=== PATIENT | male | born 1960 | race Caucasian/White ===

== ENCOUNTER 2016-10-08 09:33 | Emergency (ER) | payer OTHER ==
[~2016-10-08] VITALS: Ht 182.2 cm; Wt 63.5 kg
[~2016-10-08 09:33] MED LIST: BACTRIM DS 8001 TAB PO; FOLIC ACID1 M1 PO; GABAPENTIN300 MG PO; HYDROXYZINE HCL10 MG PO; HYDROXYZINE HCL50 MG PO; HYDROXYZINE50 MG PO; K-DUR 20MEQ TA20 MEQ PO; KEFLEX500 MG PO; LOTRISONE CREAM15 GM TOP; MAGNESIUM OXID400 MG PO; MULTIVITAMIN1 TAB PO; NAPROXEN500 MG PO; NORCO 325 MG-51 TAB PO; NYSTATIN1 POW EXT; PREDNICOT20 MG PO; PREDNISONE10 MG PO; ROBITUSSIN W/CO10 ML PO; TRIAMCINOLON TOP; TRIAMCINOLONE 0.1 GM TOP; VITAMIN B-12100 MCG PO; VITAMIN B121000 MC2 PO; ZITHROMAX Z-PA250 M1 PO
[2016-10-08] MEDS ORDERED: GABAPENTIN300 M2 PO (10:38)
--- NOTE | 2016-10-08 11:15 | ED INFLUENZA/URI COMPLAINT ---
History of Present Illness General Chief Complaint: General Adult Stated Complaint: " I HAVE A COLD AND FEVER 2 MONTHS" Source: patient, old records Exam Limitations: no limitations Vital Signs & Intake/Output Vital Signs & Intake/Output Vital Signs Date Time Temp Pulse Resp B/P Pulse O2 O2 Flow FiO2 Ox Delivery Rate 10/08 1225 98.5 79 20 134/97 96 Room Air 10/08 1131 95 10/08 0951 98.4 91 20 161/104 97 Room Air Allergies Coded Allergies: levetiracetam (Severe, UNKNOWN 10/08/16) Penicillins (Intermediate, ANGIODEMA 10/08/16) clindamycin (Intermediate, RASH 10/08/16) doxycycline (Intermediate, ANGIODEMA 10/08/16) phenytoin (From Dilantin) (Intermediate, FEVER 10/08/16) aloe (UNKNOWN 10/08/16) cephalexin (HIVES 10/08/16) shellfish derived (SHRIMP 10/08/16) tetracycline (ANGIODEMA 10/08/16) Reconcile Medications Azithromycin (Zithromax) 500 MG TABLET 1 TAB PO DAILY TICK BORNE Folic Acid 1 MG TABLET 1 TAB PO DAILY SUPPLEMENT (Reported) Gabapentin 300 MG CAPSULE 2 CAP PO BID SEIZURES (Reported) Triage Note: TRIAGE: PT TO ER C/C HEAD COLD AND FEVER X 2.5 MONTHS. STATES "I WAS SUPPOSED TO GET A VITAMIN SHOT BUT I ENDED UP GETTING THE FLU SHOT". HAS HAD S/S WAXING AND WANING SINCE. Triage Nurses Notes Reviewed? yes Onset: Gradual Duration: X 2.5 MONTHS Timing: recent history Severity: mild Severity Numbers: 5 Prior Episodes/Possible Cause: no prior episodes No Modifying Factors: none Associated Symptoms: DENIES HPI: 55-year-old male with history of seizure disorder presents emergency room complaining of a 2-1/2 month history of intermittent cold-like symptoms, nonproductive cough congestion and rhinorrhea and subjective chills fevers. He has not sought care for the symptoms until today. No shortness of breath no sputum production or hemoptysis chest pain abdominal pain nausea vomiting or diarrhea. he is not taken anything for his symptoms. He is an active smoker He denies pain Past History Travel History Traveled to [place] past 21 day No Medical History Any Pertinent Medical History? 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 No Review of Systems Review of Systems Constitutional: Reports: see HPI. All Other Systems: Reviewed and Negative Comments Review of systems: See HPI, All other systems negative. Constitutional, fever, no malaise no weight loss HEENT: No visual changes no sore throat congestion, no ear pain Cardiovascular: No chest pain , no palpitation Skin, no rashes, no change in skin Respiratory: No dyspnea cough no sputum no hemoptysis GI: No nausea no vomiting, no diarrhea, no bloating/constipation : No dysuria Muscle skeletal: No joint pain, no joint swelling, no back pain Neurologic: No numbness no confusion, no headache Psych: No stress Heme/endocrine: No bruising no bleeding Immunology: No lymphadenopathy Physical Exam Physical Exam General Appearance: well developed/nourished, alert, awake Ears, Nose, Throat: normal ENT inspection, moist mucous membrane Comments: Well-developed well-nourished person in no acute distress HEENT: Normal EENT exam; PERRL, EOMI, no nystagmus. HEAD is atraumatic. moist mucous membranes. Neck: Supple, no lymphadenopathy, normal range of motion Back: Nontender, no CVA tenderness. Full range of motion Cardiovascular: Regular rate and rhythms no murmurs rubs or gallops, normal JVP Respiratory: Chest nontender.There were no bony deformities, no asymmetry. No respiratory distress. Patient speaking in full complete sentences. Breath sounds clear to auscultation bilaterally: NO W/R/R Abdomen: Soft, nontender nondistended, no appreciable organomegaly. Normal bowel sounds. No rebound/guarding, Extremity: No edema, full range of motion of extremities Neuro: Alert oriented x3, motor sensory normal, There were no obvious focal neurologic abnormalities. Skin: No appreciable rash on exposed skin, skin is warm and dry. Psych: Mood and affect is normal, memory and judgment is normal. Core Measures Severe Sepsis Present: No Septic Shock Present: No Progress Differential Diagnosis: influenza, neutropenia, otitis, pneumonia, pharyngitis, sinusitis, MALIGNANCY, TICKBORNE ILLNESS Plan of Care: Orders Procedure Date/time Status Add-on Test (ER Only) 10/08 1209 Active HEPATIC FUNCTION PANEL 10/08 1130 Complete CBC WITHOUT DIFFERENTIAL 10/08 1123 Complete BASIC METABOLIC PANEL 10/08 1123 Complete Laboratory Tests 10/08/16 1130: Anion Gap 10, Estimated GFR > 60, BUN/Creatinine Ratio 11.4, Glucose 103 H, Calcium 10.1, Total Bilirubin 1.3, Direct Bilirubin 0.6 H, AST 43, ALT 29, Alkaline Phosphatase 60, Total Protein 7.9, Albumin 4.4, CBC w Diff NO MAN DIFF REQ, RBC 3.94 L, MCV 103.5 H, MCH 34.7 H, RDW 14.9 H, MPV 8.7, Gran % 65.6, Lymphocytes % 26.0, Monocytes % 7.3, Eosinophils % 0.8, Basophils % 0.3, Absolute Granulocytes 2.8, Absolute Lymphocytes 1.1 L, Absolute Monocytes 0.3, Absolute Eosinophils 0, Absolute Basophils 0, PUBS MCHC 33.5 Labs ordered old records reviewed chest x-ray ordered Discussed the patient at length all his lab results including his decreased white blood cell count PLT COUNT, which is new compared to previous. Discussed with patient possibility of a tickborne illness vs other pathology that could be contributing to these lab findings and that r he needs close follow-up with his primary care physician as he will require repeat blood test later this week. Prescription for Zithromax was provided given allergies to penicillin, tetracycline doxycycline take panel was sent which is pending a feel comfortable with this plan (MANDA BAIRD,JUANJO) Diagnostic Imaging: Viewed by Me: Radiology Read. Discussed w/RAD: Radiology Read. Radiology Impression: PATIENT: KRISTY AZUL PRESENT AGE: 55 PATIENT ACCOUNT NO: [id number] : 62 LOCATION: [facility] ORDERING PHYSICIAN: JUANJO BAIRD SERVICE DATE: 10/08/16112 EXAM TYPE: RAD - XRY-CHEST XRAY, PA AND LATERAL EXAMINATION: XR CHEST CLINICAL INFORMATION: Cough and fever. COMPARISON: Multiple priors, most recently 09/22/2015 TECHNIQUE : 2 views of the chest were obtained. FINDINGS: The lungs are hyperexpanded with flattening of the diaphragm. No dense consolidation, edema, or pleural effusion. No pneumothorax. The cardiomediastinal silhouette is within normal limits. Degenerative changes of the spine. Possible nodular density overlying the left mid to lower lung, in the region of the anterior left sixth rib is noted. This is similar in appearance to the study from 2013 and could be associated with a nipple shadow. IMPRESSION: Hyperexpanded lungs with no acute pulmonary findings. DICTATED BY: KRISTAL FARRAR MD DATE/TIME DICTATED:10/08/161205 CLERICAL OFFICE WORKER:GERMANIA DATE/TIME TRANSCRIBED:10/08/161205 CONFIDENTIAL, DO NOT COPY WITHOUT APPROPRIATE AUTHORIZATION. <Electronically signed in Other Vendor System> SIGNED BY: KRISTLA FARRAR MD 10/08/16 1212 Initial ED EKG: none Departure Departure Time of Disposition: 1309 Disposition: HOME OR SELF CARE Condition: Stable Clinical Impression Primary Impression: Leukopenia Secondary Impressions: Thrombocytopenia Referrals: EDVIN HERNANDEZ MD (PCP/Family) Additional Instructions: AZITHROMYCIN DIRECTED, FOLLOW UP WITH YOUR PMD THIS WEEK YOU WILL NEED REPEAT BLOOD WORK. IF THE TICK PANEL COMES BACK POSITIVE YOU WILL RECEIVE A PHONE CALL. RETURN AT ANYTIME SOONER WITH ANY CONCERNS. Departure Forms: Customer Survey General Discharge Information Prescriptions: Current Visit Scripts Azithromycin (Zithromax) 1 TAB PO DAILY #10 TAB
[2016-10-08 11:36] LABS: ABSOLUTE BASOPHIL COUNT 0 /CUMM (0.0-0.2); ABSOLUTE EOSINOPHIL COUNT 0 /CUMM (0.0-0.7); ABSOLUTE GRANULOCYTE CT 2.8 /CUMM (1.4-6.5); ABSOLUTE LYMPH COUNT 1.1 /CUMM (1.2-3.4); ABSOLUTE MONOCYTE COUNT 0.3 /CUMM (0.10-0.60); BASOPHIL % 0.3 % (0.0-2.0); EOSINOPHIL % 0.8 % (0-5); GRANULOCYTE % 65.6 % (42.2-75.2); HEMATOCRIT 40.8 % (42-52); MEAN CORPUSCULAR HGB 34.7 PG (27.0-31.0); MEAN CORPUSCULAR HGB CONC 33.5 G/DL (33.0-37.0); MEAN CORPUSCULAR VOLUME 103.5 FL (80.0-94.0); MEAN PLATELET VOLUME 8.7 FL (7.4-10.4); RBC DISTRIBUTION WIDTH 14.9 % (11.5-14.5); RED BLOOD CELL CT 3.94 /CUMM (4.70-6.10); WHITE BLOOD CELL COUNT 4.2 /CUMM (4.8-10.8)
[2016-10-08 12:01] LABS: PLATELET COUNT 66 /CUMM (130-400)
--- NOTE | 2016-10-08 12:12 | RADIOLOGY REPORT ---
EXAMINATION: XR CHEST CLINICAL INFORMATION: Cough and fever. COMPARISON: Multiple priors, most recently 09/22/2015 TECHNIQUE: 2 views of the chest were obtained. FINDINGS: The lungs are hyperexpanded with flattening of the diaphragm. No dense consolidation, edema, or pleural effusion. No pneumothorax. The cardiomediastinal silhouette is within normal limits. Degenerative changes of the spine. Possible nodular density overlying the left mid to lower lung, in the region of the anterior left sixth rib is noted. This is similar in appearance to the study from 2012 and could be associated with a nipple shadow. IMPRESSION: Hyperexpanded lungs with no acute pulmonary findings.
[2016-10-08 12:25] VITALS: BP 134/97
[2016-10-08] MEDS ORDERED: ZITHROMAX500 M2 PO (12:43)
== END 2016-10-08 13:15 ==
LOC: ERH 09:33
PROVIDERS: Physician Assistant Medical
DX: D72.819 Decreased white blood cell count, unspecified (principal); D69.6 Thrombocytopenia, unspecified
CPT/HCPCS: 86317; 87798

== ENCOUNTER 2016-11-25 19:13 | Emergency (ER) | payer OTHER ==
[~2016-11-25 19:13] MED LIST changes: +GABAPENTIN300 M2 PO; +ZITHROMAX500 M2 PO
--- NOTE | 2016-11-25 19:34 | ED PSYCHIATRIC COMPLAINT ---
See Addendum History of Present Illness General Chief Complaint: ETOH/Drug Related Complaint Stated Complaint: JAX AFTER GF CALLED PD BECAUSE HE WAS DRUNK Source: patient Exam Limitations: no limitations Vital Signs & Intake/Output Vital Signs & Intake/Output Vital Signs Date Time Temp Pulse Resp B/P B/P Pulse O2 O2 Flow FiO2 Mean Ox Delivery Rate 11/26 1412 97.9 86 16 144/82 05/ 1412 97.9 86 16 144/82 96 Room Air 11/26 1215 97.5 88 18 132/80 05/15 1200 97.5 88 18 132/80 97 Room Air 11/26 1015 98.0 92 18 130/78 05/15 1008 98.0 92 18 130/78 97 Room Air / 0815 97.0 74 18 130/82 05/15 0807 97.0 74 18 130/82 98 Room Air 11/26 0623 98.3 68 18 134/81 05/ 0615 98.3 68 18 134/81 94 Room Air 11/26 0432 98.6 81 18 129/80 05/15 0423 98.6 81 18 129/80 97 Room Air 11/26 0111 64 18 98 Room Air 11/25 2149 97.8 59 20 121/73 94 Room Air 11/25 2017 96.0 57 18 124/79 95 Room Air 11/25 195 96.0 61 18 143/84 97 Room Air Allergies Coded Allergies: levetiracetam (Severe, UNKNOWN 10/08/16) Penicillins (Intermediate, ANGIODEMA 10/08/16) clindamycin (Intermediate, RASH 10/08/16) doxycycline (Intermediate, ANGIODEMA 10/08/16) phenytoin (From Dilantin) (Intermediate, FEVER 10/08/16) aloe (UNKNOWN 10/08/16) cephalexin (HIVES 10/08/16) shellfish derived (SHRIMP 10/08/16) tetracycline (ANGIODEMA 10/08/16) Triage Note: JAX FROM HOME AFTER GIRLFRIEND GOT UPSET THAT HE WAS DRUNK WHILE THEY WERE WATCHING SPORTS. SHE CALLED 911 AND PD ENCOURAGED PT TO COME TO HOSPITAL. PT ARRIVES CALM AND COOPERATIVE AT THIS TIME. STATES HE DOES NOT WANT TO BE HERE AND DOES NOT WANT DETOX. BREATHALYZER 0.367 ON ARRIVAL Triage Nurses Notes Reviewed? yes Onset: Abrupt Duration: hour(s):, constant Timing: recent history HPI: 56-year-old male brought into the emergency room for further evaluation of being drunk and intoxicated at home. Apparently the police were called by neighbors or possibly a friend of his that was with him. When I spoke with the patient he denies any suicidal or homicidal ideation. Denies being in the public. He reports he was drinking alcohol at his own home. He denies wanting any alcohol detox. When I spoke with the friend Kelsie that was with him she reports that she has been making suicidal comments "that he is going to shoot himself in the head". He has also been making homicidal ideations. He is apparently going through some stressful times in relation to Court related issues. He is a heavy alcoholic but denies any other drug use. Drink heavy amount of vodka. (YESICA OLMEDO) Reconcile Medications Folic Acid 1 MG TABLET 1 TAB PO DAILY SUPPLEMENT (Reported) Gabapentin 300 MG CAPSULE 2 CAP PO BID SEIZURES (Reported) (PABLITO MCKEON DO) Past History Travel History Traveled to [place] past 21 day No Medical History Any Pertinent Medical History? 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 No (YESICA OLMEDO) Review of Systems Review of Systems Constitutional: Reports: no symptoms. EENTM: Reports: no symptoms. Respiratory: Reports: no symptoms. Cardiovascular: Reports: no symptoms. GI: Reports: no symptoms. Genitourinary: Reports: no symptoms. Musculoskeletal: Reports: no symptoms. Skin: Reports: no symptoms. Neurological/Psychological: Reports: see HPI. Hematologic/Endocrine: Reports: no symptoms. Immunologic/Allergic: Reports: no symptoms. All Other Systems: Reviewed and Negative (YESICA OLMEDO) Physical Exam Physical Exam General Appearance: well developed/nourished, mild distress, intoxicated Head: atraumatic Eyes: Bilateral: normal appearance. Ears, Nose, Throat: normal ENT inspection, hearing grossly normal Neck: normal inspection Respiratory: no respiratory distress Extremities: normal range of motion Neurological/Psychiatric: awake, agitated, alert Appearance/Memory/Insight: appropriate appearance Behavoir/Eye Contact/Speech: uncooperative Thoughts/Hallucinations: no apparent hallucination Skin: intact SAD PERSONS Done? unobtained due to conditi (YESICA OLMEDO) Progress Differential Diagnosis: dementia, drug intoxication, drug overdose, drug withdrawal, electrolyte abnormality, encephalitis, hypoglycemia, hypothyroidism, IC hem/mass/tumor, meningitis Plan of Care: Orders Procedure Date/time Status Regular Diet 11/26 B Active Continuous Observation Monitor 11/26 1101 Active Continuous Observation Monitor 11/25 2036 Active URINE DRUGS OF ABUSE 11/25 1925 Complete ED CRISIS PSYCH CONSULT 11/25 1925 Active ETHANOL 11/25 1917 Complete COMPREHENSIVE METABOLIC PANEL 11/25 1917 Complete CBC WITHOUT DIFFERENTIAL 11/25 1917 Complete Laboratory Tests 11/25/16 2012: Anion Gap 21 H, Estimated GFR > 60, BUN/Creatinine Ratio 15.7, Glucose 70, Calcium 8.8, Total Bilirubin 1.0, AST 118 H, ALT 56, Alkaline Phosphatase 75, Total Protein 7.7, Albumin 4.6, Globulin 3.1, Albumin/Globulin Ratio 1.5, CBC w Diff MAN DIFF ORDERED, RBC 4.09 L, MCV 104.2 H, MCH 35.3 H, RDW 15.3 H, MPV 10.3, Gran % 33.0 L, Lymphocytes % 59.8 H, Monocytes % 5.4, Eosinophils % 1.2, Basophils % 0.6, Absolute Granulocytes 1.2 L, Segmented Neutrophils 35 L, Band Neutrophils 4, Absolute Lymphocytes 2.1, Lymphocytes 52 H, Monocytes 6, Absolute Monocytes 0.2, Eosinophils 3, Absolute Eosinophils 0, Absolute Basophils 0, Platelet Estimate DECREASED, Basophilic Stippling 1+, Anisocytosis 1+, Macrocytic Cells 1+, PUBS MCHC 33.9, Serum Alcohol 332.0 11/25/161955: Urine Opiates Screen < 100.00, Methadone Screen < 40, Barbiturate Screen < 60, Ur Phencyclidine Scrn < 6.00, Amphetamines Screen < 100, U Benzodiazepines Scrn < 85, Urine Cocaine Screen < 50, Urine Cannabis Screen 7.90 Hand-Off Endorsed To: NELSON FRANCE MD Pending: consult (crisis), labs (YESICA OLMEDO) Hand-Off Endorsed To: DAMION PARTIDA MD Endorsed Time: 0700 Pending: consult (NELSON FRANCE MD) Departure Departure Disposition: STILL A PATIENT Condition: Stable Clinical Impression Primary Impression: Alcohol abuse Secondary Impressions: Homicidal ideation, Suicidal ideation Referrals: EDVIN HERNANDEZ MD (PCP/Family) Departure Forms: Customer Survey General Discharge Information (YESICA OLMEDO) PA/QUALITY CONTROL PROJECTIONIST Co-Sign Statement Statement: ED Attending supervision documentation- [] I saw and evaluated the patient. I have also reviewed all the pertinent lab results and diagnostic results. I agree with the findings and the plan of care as documented in the PA's/QUALITY CONTROL PROJECTIONIST's documentation. [x] I have reviewed the ED Record and agree with the PA's/QUALITY CONTROL PROJECTIONIST's documentation. [] Additions or exceptions (if any) to the PAs/QUALITY CONTROL PROJECTIONIST's note and plan are summarized below: [] (KATHI HAWLEY,NELSON Mayo) Departure Comments 11/26/16 3 PM The patient was signed out to me by Dr. France at 7 AM, at 3 PM- The patient was seen and evaluated and cleared by crisis. He has no interest in detox at this time. (PABLITO MCKEON DO)
[2016-11-25 20:26] LABS: HEMATOCRIT 42.6 % (42-52); MEAN CORPUSCULAR HGB 35.3 PG (27.0-31.0); MEAN CORPUSCULAR HGB CONC 33.9 G/DL (33.0-37.0); MEAN CORPUSCULAR VOLUME 104.2 FL (80.0-94.0); RBC DISTRIBUTION WIDTH 15.3 % (11.5-14.5); RED BLOOD CELL CT 4.09 /CUMM (4.70-6.10); WHITE BLOOD CELL COUNT 3.5 /CUMM (4.8-10.8)
[2016-11-25 20:27] LABS: ABSOLUTE BASOPHIL COUNT 0 /CUMM (0.0-0.2); ABSOLUTE EOSINOPHIL COUNT 0 /CUMM (0.0-0.7); ABSOLUTE GRANULOCYTE CT 1.2 /CUMM (1.4-6.5); ABSOLUTE LYMPH COUNT 2.1 /CUMM (1.2-3.4); ABSOLUTE MONOCYTE COUNT 0.2 /CUMM (0.10-0.60); BASOPHIL % 0.6 % (0.0-2.0); EOSINOPHIL % 1.2 % (0-5); MEAN PLATELET VOLUME 10.3 FL (7.4-10.4)
[2016-11-25 20:46] LABS: PLATELET COUNT 43 /CUMM (130-400)
--- NOTE | 2016-11-26 11:18 | ED PSYCH CRISIS CONSULTATION ---
See Addendum Crisis Consult Basic Assessment Date of Consult: 11/26/16 Responsible Person/Accompanied By: self Insurance Authorization: Insurance #1: Insurance name: SHYLA FRANCOIS Phone number: Policy number: [id number] Group number: Authorization number: ED Provider: Patient's ED Provider: YESICA OLMEDO Primary Care Physician: Patient's PCP: EDVIN HERNANDEZ MD PCP's Current Psychiatrist: none Chief Complaint: ETOH/Drug Related Complaint Patient's Quote: "I would never hurt anyone or myself." Present Illness: Pt is a 56yo male who was brought to the ED after his girlfriend called 911 because pt was making suicidal statements saying he would get a gun and shoot himself or that he would stab himself. He also made HI threats toward his girlfriend with no specific plan. Pt made these statements while he was intoxicated. His BAL was 367 at 1915 on 11/25/16. Pt presents as calm and cooperative. He declines wanting detox. He reports drinking 1 pint of hard alcohol daily since age 20. He adamantly denies SI/HI and says he does not recall making any SI/HI statements. He declines any treatment or referrals and wants to be discharged. He denies any sx of depression. "I need to get out of here sherif I have to take care of my 89yo sick Mom and I have bills to pay." Pt denies any hx of inpt psych or detox. He reports that he was in out pt tx at [facility] about 2-3 years ago. Crisis spoke with Pt's Girlfriend of 25 years Nancy Tamez . She does not live with pt but was over his house last night. She reports that he has failed 2 [facility] intakes recently due to being drunk. He has court on Saturday due to an arrest related to being drunk in public. Nancy informed that court plans to mandate him to go to rehab. She explains that the reason sh had him sent to the hospital last night was that he had been making suicidal statements all week, but last night has was making SI/HI statements as well. Case reviewed with Dr. Cerrato of psychiatry as well ad Dr. Travis Chair of Psychiatry and Maricruz Leigh director biostatistics. It was advised that Nancy come in for a meeting with pt and die cut operator and then based on the outcome of meeting, will likely be discharged. Nancy agreed to come in this afternoon. Pt in agreement with plan. Patient's Address: [address] [place] [address] Other Who Do You Live With? Patient/Self Family/Informants Interviewed: Girlfriend Allergies - Coded Allergies: levetiracetam (Severe, UNKNOWN 10/08/16) Penicillins (Intermediate, ANGIODEMA 10/08/16) clindamycin (Intermediate, RASH 10/08/16) doxycycline (Intermediate, ANGIODEMA 10/08/16) phenytoin (From Dilantin) (Intermediate, FEVER 10/08/16) aloe (UNKNOWN 10/08/16) cephalexin (HIVES 10/08/16) shellfish derived (SHRIMP 10/08/16) tetracycline (ANGIODEMA 10/08/16) Current Medications - Scheduled Medications Folic Acid 1 MG TABLET 1 TAB PO DAILY SUPPLEMENT (Reported) Entered as Reported by PEDRO PABLO ADAMS on 04/12/14 1212 Gabapentin 300 MG CAPSULE 2 CAP PO BID SEIZURES (Reported) Entered as Reported by PEDRO PABLO ADAMS on 10/08/16 1038 Laboratory Results: Laboratory Tests 11/25/16 2012: Anion Gap 21 H, Estimated GFR > 60, BUN/Creatinine Ratio 15.7, Glucose 70, Calcium 8.8, Total Bilirubin 1.0, AST 118 H, ALT 56, Alkaline Phosphatase 75, Total Protein 7.7, Albumin 4.6, Globulin 3.1, Albumin/Globulin Ratio 1.5, CBC w Diff MAN DIFF ORDERED, RBC 4.09 L, MCV 104.2 H, MCH 35.3 H, RDW 15.3 H, MPV 10.3, Gran % 33.0 L, Lymphocytes % 59.8 H, Monocytes % 5.4, Eosinophils % 1.2, Basophils % 0.6, Absolute Granulocytes 1.2 L, Segmented Neutrophils 35 L, Band Neutrophils 4, Absolute Lymphocytes 2.1, Lymphocytes 52 H, Monocytes 6, Absolute Monocytes 0.2, Eosinophils 3, Absolute Eosinophils 0, Absolute Basophils 0, Platelet Estimate DECREASED, Basophilic Stippling 1+, Anisocytosis 1+, Macrocytic Cells 1+, PUBS MCHC 33.9, Serum Alcohol 332.0 11/25/166: Urine Opiates Screen < 100.00, Methadone Screen < 40, Barbiturate Screen < 60, Ur Phencyclidine Scrn < 6.00, Amphetamines Screen < 100, U Benzodiazepines Scrn < 85, Urine Cocaine Screen < 50, Urine Cannabis Screen 7.90 Past History Past Medical History Neurological: seizure EENT: cataracts Cardiovascular: NONE Respiratory: pneumonia Gastrointestinal: NONE Hepatic: NONE Renal: NONE Musculoskeletal: FRACTURED SKULL Psychiatric: NONE Endocrine: hypoglycemia Blood Disorders: NONE Cancer(s): 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 Past Surgical History Surgical History: non-contributory Psychosocial History Strengths/Capabilities: supportive concerned girlfriend, forward thinking Physical Limitations (Interventions): none reported Psychiatric Treatment History Psych Treatment Psychiatric Treatment No Inpatient Treatment No Outpatient Treatment No Diagnosis by History: n/a Substance Use/Abuse History Drug Use/Abuse Substances Used/Abused Yes Substance Used/Abused Alcohol First Use 20yo Last Used last night How much used/taken 1 pint How often daily For how long since age 20 Route of use po Substance Abuse Treatment Substance Abuse Treatment Past Substance Abuse TX Yes Inpatient Treatment No Outpatient Treatment Yes Location of Treatment [facility] Reason for Treatment Alcohol use Dates of Treatment 2-3 years ago Response to Treatment poor Current Mental Status Mental Status Orientation: Person, Place, Situation Affect: WNL Speech: WNL Neuro-vegetative: WNL Appearance Appearance- Dress/Hygiene: fairly groomed, good eye contact Behaviors Thought Process: WNL Thought Content: WNL Memory: WNL Insight: WNL SI/HI Risk Assessment Past Suicidal Ideation/Attempts No Current Suicidal Ideation/Att No Past Homicidal Ideation/Att: No Current Homicidal Ideation/Attempts No Degree of Intent: None Risk Factors: substance abuse, lives alone, male Lethality Ratin (mild) PTSD Checklist PTSD Done? patient declined ED Management Sitter: Yes Restraints: No DSM5/PS Stressors/Medical Prob Diagnosis' (DSM 5, Stressors, Medical): Alcohol Use d/o severe F10.20 Departure Disposition Psych Medical Clearance Date: 11/26/16 Medically Cleared at: 1045 Time Started: 1045 Time Ended: 1115 Psychiatrist Consulted: Keena Cerrato MD Date Disposition Established: 11/26/16 Time Disposition Established: 1114 Plan for Disposition - Modality: Family Metting then d/c Facility: pt declined follow-up tx Rationale for Disposition: Pt denies SI/HI and wants to be discharged Referrals EDVIN HERNANDEZ MD (PCP/Family)
[2016-11-26 14:12] VITALS: BP 144/82
== END 2016-11-26 15:30 ==
LOC: ERH 19:13
PROVIDERS: Physician Assistant Medical
DX: F10.10 Alcohol abuse, uncomplicated (principal); R45.851 Suicidal ideations; R45.850 Homicidal ideations
CPT/HCPCS: 80307; 96372; G0463; G0480; J1200; J1630